=== PATIENT | male | born 1950 | race Hispanic/Latino ===

== ENCOUNTER → 2017-07-10 | Outpatient (CLI) | payer OTHER ==
[~2017-07-10] MED LIST: ACET1TAB12 PO; AMLO5TAB2 PO; ASPI-555 PO; ATOR-2 PO; CLOP75TA32 PO; CYAN10009 PO; DICL75TA5 PO; INSLAN SQ; INSU100I3 SQ; INSU3INS3 SQ; LISI-613 PO; METF10004 PO; METF850T2 PO; METO25TA6 PO; NITR0.4T50 SL; OMEP20CA10 PO; REGADENOSON 0.4 MG/5 ML PF SYG IVP SCH
== END | disposition home or self-care (01) ==
LOC: SHCH 10:00
PROVIDERS: ATTEND Internal Medicine Cardiovascular Disease
DX: I25.10 Atherosclerotic heart disease of native coronary artery without angina pectoris (principal)
CPT/HCPCS: 78452; 93017; 96374; A9500 ×2; J2785

== ENCOUNTER 2017-08-19 22:32 | Observation (INO) | payer OTHER ==
[~2017-08-19] VITALS: Ht 160 cm; Wt 67.5 kg
[~2017-08-19 22:32] MED LIST changes: -ACET1TAB12 PO; -ASPI-555 PO; -LISI-613 PO; -METF850T2 PO; -METO25TA6 PO; -NITR0.4T50 SL; -REGADENOSON 0.4 MG/5 ML PF SYG IVP SCH
[2017-08-19] MEDS ORDERED: ASPIRIN 81MG TAB.CHEW ONE (22:51)
[2017-08-19] MEDS ORDERED: NITROGLYCERIN 0.4 MG SL TAB SL ONE (22:51)
[2017-08-19 22:59] LABS: BASOPHILS % (AUTO) 0.2 % (0.0-5.0); EOSINOPHILS % (AUTO) 0.5 % (0.0-8.0); LYMPHOCYTES % (AUTO) 11.5 % (21.0-51.0); MEAN CORPUSCULAR HEMOGLOBIN 30.6 pg (27.0-33.0); MEAN CORPUSCULAR HGB CONC 34.6 g/dL (32.0-36.0); MEAN CORPUSCULAR VOLUME 88.3 fL (79-99); MONOCYTES % (AUTO) 5.9 % (3.0-13.0); NEUTROPHILS % (AUTO) 81.9 % (40.0-77.0); PLATELET COUNT (AUTO) 175 K/uL (130-400); RED BLOOD CELL COUNT(AUTO) 4.53 MIL/uL (4.50-6.20); RED CELL DISTRIBUTION WIDTH 13.8 % (11.0-15.5)
[2017-08-19 23:07] LABS: CARBON DIOXIDE 26 mmol/L (21-32); CHLORIDE 105 mmol/L (101-111); CREATININE 0.9 mg/dL (0.5-1.5); GLOMERULAR FILTR. RATE CALC 90 mL/min (>60); GLUCOSE,RANDOM 126 mg/dL (70-105); POTASSIUM 3.7 mmol/L (3.5-5.1); SODIUM SERUM 141 mmol/L (136-145); UREA NITROGEN, BLOOD 19 mg/dL (7-18)
[2017-08-19 23:21] LABS: ALANINE AMINOTRANSFERASE 21 U/L (12-78); ALBUMIN 3.2 g/dL (3.5-5.0); ASPARTATE AMINOTRANSFERASE 16 U/L (10-37); BILIRUBIN,TOTAL 0.6 mg/dL (0.2-1.0); CREATINE KINASE MB < 0.5 ng/mL (0.5-3.6); CREATINE KINASE, TOTAL 27 U/L (21-232); MYOGLOBIN 18 ng/mL (10-92); TOTAL PROTEIN, SERUM 6.7 g/dL (6.0-8.3); TROPONIN I < 0.04 ng/mL (0.00-0.06)
[2017-08-20] MEDS ORDERED: NITROGLYCERIN 1GM/1 INCH PACKET TD ONE ×2 (01:04→12:53)
[2017-08-20 06:46] LABS: CREATINE KINASE MB < 0.5 ng/mL (0.5-3.6); CREATINE KINASE, TOTAL 19 U/L (21-232); MYOGLOBIN 23 ng/mL (10-92); TROPONIN I < 0.04 ng/mL (0.00-0.06)
[2017-08-20] MEDS ORDERED: NITR0.4T50 SL (09:12)
[2017-08-20] MEDS ORDERED: ASPI-555 PO (09:12)
[2017-08-20] MEDS ORDERED: METF850T2 PO (09:12)
[2017-08-20] MEDS ORDERED: ACET1TAB12 PO (09:12)
[2017-08-20] MEDS ORDERED: METO25TA6 PO (09:12)
[2017-08-20] MEDS ORDERED: LISI-613 PO (09:12)
[2017-08-20] MEDS ORDERED: INSLAN SQ (09:12)
[2017-08-20] MEDS ORDERED: METOPROLOL TARTRATE 50 MG TAB ONE (13:02)
[2017-08-20 13:17] LABS: CREATINE KINASE MB < 0.5 ng/mL (0.5-3.6); CREATINE KINASE, TOTAL 18 U/L (21-232)
[2017-08-20] MEDS ORDERED: ASPIRIN 325 MG TABLET ONE (16:08)
[2017-08-20 16:45] VITALS: BP 140/52
[2017-08-20] MEDS ORDERED: NITROGLYCERIN 0.4 MG SL TAB SL PRN (18:45)
[2017-08-20 19:36] VITALS: BP 132/54
[2017-08-20] MEDS: PANTOPRAZOLE SODIUM 40 MG TABLET.DR PO SCH (20:27)
[2017-08-20] MEDS: INSULIN HUMULIN R 100 UNIT/ML 3ML SQ SCH (20:33)
[2017-08-20] MEDS ORDERED: AMLODIPINE BESYLATE 5 MG TAB PO SCH (21:00)
[2017-08-20] MEDS ORDERED: CLOPIDOGREL BISULFATE 75 MG TAB PO SCH (21:00)
[2017-08-20] MEDS ORDERED: ATORVASTATIN CALCIUM 40 MG TABLET PO SCH (21:00)
[2017-08-20 23:28] VITALS: BP 141/62
[2017-08-21 03:30] VITALS: BP 130/62
[2017-08-21] MEDS: INSULIN HUMULIN R 100 UNIT/ML 3ML SQ SCH ×2 (05:36→12:11)
[2017-08-21] MEDS ORDERED: INSULIN GLARGINE 100 UNITS/ML 10 ML VIAL SQ SCH (07:30)
[2017-08-21] MEDS ORDERED: NITROGLYCERIN 5 MG/ML 10 ML VIAL IV ONE (07:45)
[2017-08-21] MEDS ORDERED: ISOVUE-370 50ML VIAL IV ONE (08:20)
[2017-08-21] MEDS ORDERED: SODIUM CHLORIDE 0.9% 1000ML 1,000 ML IV SCH (08:37)
[2017-08-21] MEDS ORDERED: SODIUM BICARB 50MEQ 50ML VIAL ONE (08:39)
[2017-08-21] MEDS ORDERED: IOPAMIDOL-370 100 ML VIAL IV ONE (08:40)
[2017-08-21] MEDS ORDERED: RANOLAZINE 500 MG TAB.SR.12H PO SCH (09:00)
[2017-08-21] MEDS ORDERED: ASPIRIN 81 MG EC TAB PO SCH (09:00)
[2017-08-21] MEDS ORDERED: LISINOPRIL 20 MG TABLET PO SCH (09:00)
[2017-08-21] MEDS ORDERED: ACETAMINOPHEN-CODEINE 300/30MG TAB PO SCH (09:00)
[2017-08-21] MEDS ORDERED: METOPROLOL TARTRATE 25 MG TAB PO SCH ×2 (09:00)
[2017-08-21 09:15] VITALS: BP 158/67
[2017-08-21] MEDS: PANTOPRAZOLE SODIUM 40 MG TABLET.DR PO SCH (09:34)
[2017-08-21 11:00] VITALS: BP 122/52
[2017-08-21 16:00] VITALS: BP 122/55
== END 2017-08-21 17:21 | disposition home or self-care (01) ==
LOC: EDH 22:32 → EDHIP 08-20 00:58 → 2AH 08-20 16:33
PROVIDERS: ADMIT Family Medicine; ATTEND Family Medicine
DX: I25.119 Atherosclerotic heart disease of native coronary artery with unspecified angina pectoris (principal); I25.84 Coronary atherosclerosis due to calcified coronary lesion; I11.0 Hypertensive heart disease with heart failure; I50.32 Chronic diastolic (congestive) heart failure; E11.9 Type 2 diabetes mellitus without complications; E78.5 Hyperlipidemia, unspecified; F17.210 Nicotine dependence, cigarettes, uncomplicated; Z95.1 Presence of aortocoronary bypass graft
CPT/HCPCS: 36415 ×2; 71045; 80053; 82550 ×3; 82553 ×3; 82948 ×6; 83874 ×2; 84484 ×3; 85025; 93005 ×2; 93459; 96372 ×2; 99285; C1760; C1894; G0378 ×40; J1644; J1815; J3490 ×2; Q9967 ×2

== ENCOUNTER 2018-06-01 05:30 | Day surgery (SDC) | payer OTHER ==
[~2018-06-01] VITALS: Ht 162.6 cm; Wt 59.1 kg
[~2018-06-01 05:30] MED LIST changes: +ACET1TAB12 PO; -AMLO5TAB2 PO; +AMLO5TAB7 PO; +ASPI-555 PO; +LISI-613 PO; +METF-445 PO; +METF-446 PO; -METF10004 PO; +METO25TA6 PO; +NITR0.4T50 SL
[2018-06-01 05:48] VITALS: BP 144/64
[2018-06-01] MEDS ORDERED: ISOS30TA6 PO (06:09)
[2018-06-01] MEDS ORDERED: RANO10003 PO (06:09)
[2018-06-01] MEDS ORDERED: LISI40TA4 PO (06:16)
[2018-06-01] MEDS ORDERED: ATOR-2 PO (06:16)
[2018-06-01] MEDS ORDERED: SODIUM CHLORIDE 0.9% 1000ML 1,000 ML IV ONE (06:39)
[2018-06-01] MEDS ORDERED: PROPOFOL 10 MG/ML 20ML VIAL IV ONE (06:55)
[2018-06-01] MEDS ORDERED: EPHEDRINE SULFATE 50 MG/ML AMPULE ONE (07:08)
[2018-06-01 07:21] VITALS: BP 101/48
[2018-06-01 07:26] VITALS: BP 104/48
[2018-06-01 07:31] VITALS: BP 105/51
[2018-06-01 07:37] VITALS: BP 112/52
== END 2018-06-01 07:54 | disposition home or self-care (01) ==
LOC: ENDO 05:30 → DAH 05:30 → ENDO 07:54
PROVIDERS: ATTEND Internal Medicine Gastroenterology
DX: Z12.11 Encounter for screening for malignant neoplasm of colon (principal); D12.3 Benign neoplasm of transverse colon; D12.4 Benign neoplasm of descending colon; D12.5 Benign neoplasm of sigmoid colon; Z85.038 Personal history of other malignant neoplasm of large intestine; Z98.890 Other specified postprocedural states; E78.5 Hyperlipidemia, unspecified; I10 Essential (primary) hypertension; E11.9 Type 2 diabetes mellitus without complications; Z79.899 Other long term (current) drug therapy; Z95.5 Presence of coronary angioplasty implant and graft; Z95.1 Presence of aortocoronary bypass graft; I25.10 Atherosclerotic heart disease of native coronary artery without angina pectoris; K21.9 Gastro-esophageal reflux disease without esophagitis
CPT/HCPCS: 45380; 45385; 82948; 88305; 93005; A4606; J2704; J3490; J7030; 45384

== ENCOUNTER 2018-08-28 17:43 | Emergency (ER) | payer OTHER ==
[~2018-08-28 17:43] MED LIST changes: -ACET1TAB12 PO; -AMLO5TAB7 PO; +AMLO5TAB9 PO; -CYAN10009 PO; -DICL75TA5 PO; -INSU3INS3 SQ; +ISOS30TA6 PO; -LISI-613 PO; +LISI40TA4 PO; -METF-446 PO; -OMEP20CA10 PO; +RANO10003 PO
[2018-08-28 18:19] LABS: BASOPHILS % (AUTO) 0.2 % (0.0-5.0); EOSINOPHILS % (AUTO) 0.7 % (0.0-8.0); HEMATOCRIT 37.9 % (42-54); LYMPHOCYTES % (AUTO) 8.8 % (21.0-51.0); MEAN CORPUSCULAR HEMOGLOBIN 30.9 pg (27.0-33.0); MEAN CORPUSCULAR HGB CONC 33.9 g/dL (32.0-36.0); MEAN CORPUSCULAR VOLUME 91.1 fL (79-99); MONOCYTES % (AUTO) 4.6 % (3.0-13.0); NEUTROPHILS % (AUTO) 85.7 % (40.0-77.0); PLATELET COUNT (AUTO) 161 K/uL (130-400); RED BLOOD CELL COUNT(AUTO) 4.16 MIL/uL (4.50-6.20); RED CELL DISTRIBUTION WIDTH 15.4 % (11.0-15.5); WHITE BLOOD COUNT (AUTO) 8.7 K/uL (4.8-10.8)
[2018-08-28 18:30] LABS: CREATININE 1.1 mg/dL (0.5-1.5); POTASSIUM 4.5 mmol/L (3.5-5.1)
[2018-08-28 18:35] LABS: BILIRUBIN,TOTAL 0.2 mg/dL (0.2-1.0)
[2018-08-28 19:16] LABS: APPEARANCE,URINE Clear (CLEAR); BILIRUBIN,URINE Small (NEGATIVE); COLOR,URINE Dark Yellow (YELLOW); GLUCOSE, URINE (UA) 500 mg/dL (NEGATIVE); KETONES,URINE Trace mg/dL (NEGATIVE); LEUKOCYTE ESTERASE ,URINE Trace (NEGATIVE); NITRATE,URINE Negative (NEGATIVE); OCCULT BLOOD,URINE Negative (NEGATIVE); PROTEIN,URINE POS 2+ mg/dL (NEGATIVE)
[2018-08-28 19:26] LABS: BACTERIA,URINE Rare /HPF (None Seen); MUCUS,URINE Few LPF (None Seen); RBC,URINE 0-1 /HPF (0-1); WBC,URINE 0-1 /HPF (0-1)
[2018-08-28] MEDS ORDERED: DEXTROSE 50%-WATER 50 ML DISP.SYRIN IV ONE (19:55)
== END 2018-08-28 21:42 | disposition home or self-care (01) ==
LOC: EDH 17:43
DX: E11.649 Type 2 diabetes mellitus with hypoglycemia without coma (principal); E78.5 Hyperlipidemia, unspecified; R42 Dizziness and giddiness; R55 Syncope and collapse; I10 Essential (primary) hypertension; Z85.038 Personal history of other malignant neoplasm of large intestine; Z79.4 Long term (current) use of insulin
CPT/HCPCS: 36415; 80053; 81001; 82948 ×3; 85025; 93005; 96360; 99284; J7070

== ENCOUNTER → 2018-10-04 | Outpatient (CLI) | payer OTHER | END | disposition home or self-care (01) | LOC: SHCH 09:54 | PROVIDERS: ATTEND Internal Medicine Cardiovascular Disease | DX: I65.23 Occlusion and stenosis of bilateral carotid arteries (principal) | CPT/HCPCS: 93880 ==